=== PATIENT | female | born 1945 | race Caucasian/White ===

== ENCOUNTER 2022-06-15 07:56 | Emergency (ER) | payer MEDICARE, OTHER ==
[~2022-06-15] VITALS: Ht 167.6 cm; Wt 82.1 kg
[~2022-06-15 07:56] MED LIST: ACET500 PO; CEPH500 PO; CITA20; ESCI10 PO; FLUT.05NI; HYDACE5 PO; IBUP200; LAMO100 PO; LAMO50 PO; MUPI1NAS; Mucinex600 MG PO; OMEP20ER PO; SULTRIDS PO; TRAZ100 PO
[2022-06-15] MEDS ORDERED: B-1100 M1 PO (09:27)
[2022-06-15] MEDS ORDERED: ATORVASTATIN CA20 MG PO (09:28)
[2022-06-15] MEDS ORDERED: Bactrim Ds Tab1 EACH PO (10:33)
== END 2022-06-15 11:07 | disposition home or self-care (01) ==
LOC: ER 07:56
DX: L02.811 Cutaneous abscess of head [any part, except face] (principal); Z79.899 Other long term (current) drug therapy
CPT/HCPCS: 10060; 99282-25

== ENCOUNTER 2022-07-12 15:24 | Emergency (ER) | payer MEDICARE, OTHER ==
[~2022-07-12] VITALS: Ht 167.6 cm; Wt 83.9 kg
[~2022-07-12 15:24] MED LIST changes: +ATORVASTATIN CA20 MG PO; +B-1100 M1 PO; +Bactrim Ds Tab1 EACH PO
== END 2022-07-12 17:38 | disposition home or self-care (01) ==
LOC: ER 15:24
DX: M47.9 Spondylosis, unspecified (principal); G89.29 Other chronic pain; Z79.899 Other long term (current) drug therapy
CPT/HCPCS: 72100; A9270; J1885

== ENCOUNTER 2024-03-15 21:27 | Emergency (ER) | payer MEDICARE, OTHER ==
[~2024-03-15] VITALS: Ht 167.6 cm; Wt 81.7 kg
[2024-03-15 21:39] LABS: PCO2 Arterial 47.4 mmHg (35-45); PO2 Arterial 361 mmHg (80-100)
[2024-03-15] MEDS ORDERED: Ipratropium/Albuterol SulF 2.5-0.5MG/3 ML Amp INH ONE (21:40)
[2024-03-15 21:44] LABS: BASOPHILS ABSOLUTE AUTO 0.06 K/mm3 (0.00-0.23); BASOPHILS PERCENT AUTO 1 % (0-2); EOSINOPHILS ABSOLUTE AUTO 0.21 K/mm3 (0.00-0.68); EOSINOPHILS PERCENT AUTO 2 % (0-6); Hematocrit 35.3 % (33.0-51.0); Hemoglobin 11.6 g/dL (11.5-16.0); IMMATURE GRAN ABSOLUTE AUTO 0.03 K/mm3 (0.00-0.10); IMMATURE GRAN PERCENT AUTO 0 % (0-1); LYMPHOCYTES ABSOLUTE AUTO 4.28 K/mm3 (0.84-5.20); LYMPHOCYTES PERCENT AUTO 44 % (21-46); MONOCYTES ABSOLUTE AUTO 0.89 K/mm3 (0.16-1.47); MONOCYTES PERCENT AUTO 9 % (4-13); Mean Corpuscular HGB 30.4 pg (26.0-34.0); Mean Corpuscular HGB Conc 32.9 g/dL (31.5-36.5); Mean Corpuscular Volume 92 fL (80-100); Mean Platelet Volume 8.8 fL (9.1-12.4); NEUTROPHILS ABSOLUTE AUTO 4.32 K/mm3 (1.96-9.15); NEUTROPHILS PERCENT AUTO 44 % (41-73); Platelet Count 306 K/mm3 (150-400); RDW Coefficient Variation 13.9 % (11.7-14.2); RDW Standard Deviation 47.4 fL (35.1-46.3); Red Blood Cell Count 3.82 M/mm3 (3.80-5.20); White Blood Cell Count 9.79 K/mm3 (4.00-11.30)
[2024-03-15 22:04] LABS: Albumin, Blood 3.6 g/dL (3.4-5.0); Bilirubin, Total 0.2 mg/dL (0.1-1.0); Bun/Creatinine Ratio 11.3 (12.0-20.0); Calcium, Blood 8.8 mg/dL (8.5-10.1); Creatinine, Blood 0.88 mg/dL (0.40-1.00); Globulin, Blood 3.6 g/dL (2.2-4.0); Potassium, Blood 3.6 mmol/L (3.5-5.5); Total Protein, Blood 7.2 g/dL (6.4-8.2)
[2024-03-16] MEDS ORDERED: NS 1,000 ML IV ONE (00:09)
[2024-03-16] MEDS ORDERED: NS 1,000 ML IV SCH (00:10)
[2024-03-16 02:00] VITALS: BP 129/71
== END 2024-03-16 02:10 | disposition home or self-care (01) ==
LOC: ER 21:27
PROVIDERS: Emergency Medicine
DX: T59.811A Toxic effect of smoke, accidental (unintentional), initial encounter (principal); F10.129 Alcohol abuse with intoxication, unspecified; Z79.899 Other long term (current) drug therapy
CPT/HCPCS: 36600; 71045; 80053; 82375; 82803; 83605; 85025; 94640; 94664; 99284-25; J7030